=== PATIENT | male | born 1975 | race African-American/Black ===

== ENCOUNTER 2016-11-30 13:07 | Emergency (ER) | payer SELFPAY ==
--- NOTE | 2016-11-30 16:25 | ER Document Report ---
ED Skin Rash/Insect Bite/Abscs - General Chief Complaint: Cyst Stated Complaint: BUMP ON HEAD Time seen by provider: 16:22 Mode of Arrival: Ambulatory TRAVEL OUTSIDE OF THE [place] IN LAST 30 DAYS: No - HPI Patient complains to provider of: Tender/swollen area - Scalp Onset: Other - Had a small bump for the last week but the last couple days it has gotten much bigger Onset/Duration: Gradual, Worse Quality of pain: Other - sore Severity: Moderate Pain Level: 3 Skin Character: Abscess Quality of rash: Painful Identify cause: No Exacerbated by: Other - Touch Relieved by: Denies Similar symptoms previously: Yes Recently seen / treated by doctor: No - Related Data Allergies/Adverse Reactions: No Known Allergies Allergy (Verified 01/07/16 06:06) Past Medical History - General Information source: Patient - Social History Smoking Status: Current Every Day Smoker Cigarette use (# per day): Yes - half pack per day Chew tobacco use (# tins/day): No Frequency of alcohol use: Social Drug Abuse: None 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 denies: Arthritis, CAD, COPD, CVA, DM , Hyperlipidemia, Hypertension, Malignancy, Thyroid Disfunction Patient has suicidal ideation: No Patient has homicidal ideation: No - Past Medical History Cardiac Medical History: Reports: None Pulmonary Medical History: Reports: None EENT Medical History: Reports: None Neurological Medical History: Reports: None Endocrine Medical History: Reports: None Renal/ Medical History: Reports: Hx Kidney Stones Malignancy Medical History: Reports None GI Medical History: Reports: None Musculoskeltal Medical History: Reports None Skin Medical History: Reports None Psychiatric Medical History: Reports: None Traumatic Medical History: Reports: None Infectious Medical History: Reports: None Past Surgical History: Reports: Hx Appendectomy - Immunizations Hx Diphtheria, Pertussis, Tetanus Vaccination: Yes Review of Systems - Review of Systems Constitutional: No symptoms reported EENT: No symptoms reported Cardiovascular: No symptoms reported Respiratory: No symptoms reported Gastrointestinal: No symptoms reported Genitourinary: No symptoms reported Male Genitourinary: No symptoms reported Musculoskeletal: No symptoms reported Skin: Lesions - Top scalp Hematologic/Lymphatic: No symptoms reported Neurological/Psychological: No symptoms reported -: Yes All other systems reviewed and negative Physical Exam - Vital signs Vitals: Temp Pulse Resp BP Pulse Ox 98.1 F 60 16 122/69 100 01/02/17 13:14 11/30/16 13:14 11/30/16 13:14 11/30/16 13:14 11/30/16 13:14 Interpretation: Normal - General General appearance: Appears well, Alert - HEENT Head: Normocephalic, Atraumatic Eyes: Normal Pupils: PERRL - Respiratory Respiratory status: No respiratory distress Chest status: Nontender Breath sounds: Normal Chest palpation: Normal - Cardiovascular Rhythm: Regular Heart sounds: Normal auscultation Murmur: No - Abdominal Inspection: Normal Distension: No distension Bowel sounds: Normal Tenderness: Nontender Organomegaly: No organomegaly - Back Back: Normal, Nontender - Extremities General upper extremity: Normal inspection, Nontender, Normal color, Normal ROM , Normal temperature General lower extremity: Normal inspection, Nontender, Normal color, Normal ROM , Normal temperature, Normal weight bearing. No: Ger's sign - Neurological Neuro grossly intact: Yes Cognition: Normal Orientation: AAOx4 Brenda Coma Scale Eye Opening: Spontaneous Wadley Coma Scale Verbal: Oriented Wadley Coma Scale Motor: Obeys Commands Brenda Coma Scale Total: 15 Speech: Normal Motor strength normal: LUE, RUE, LLE, RLE Sensory: Normal - Psychological Associated symptoms: Normal affect, Normal mood - Skin Skin Temperature: Warm Skin Moisture: Dry Skin Color: Normal Skin irregularity: Abscess Location of irregularity: Scalp Irregularity with: Swelling, Tenderness, Warmth Course - Vital Signs Vital signs: Temp Pulse Resp BP Pulse Ox 97.4 F 70 20 132/78 H 98 11/30/16 17:38 11/30/16 17:38 11/30/16 17:38 11/30/16 17:38 11/30/16 17:38 Procedures - Incision and Drainage Posterior Head Time completed: 17:28 Type: Simple Anesthetic type: 1% Lidocaine Blade size: 11 I&D procedure: Other - Surgical scrub Incision Method: Incision made by scalpel Discharge - Discharge Clinical Impression: Abscess of scalp Condition: Stable Disposition: HOME, SELF-CARE Instructions: Family Physicians / Practices Additional Instructions: ABSCESS: You have an abscess (boil). This a pus-forming infection, usually due to staph. Some boils may be left to drain on their own, but most require lancing. From the time the tender lump first appears, it may be three or four days before the abscess is ready to obdulia. Local heat and rest help at this stage of treatment. An antibiotic may prevent spread of the infection. Once the abscess is opened, packing may be placed into it. This is done so pus is not sealed inside by premature closure of the cavity. The packing will be removed at your follow-up visit or you may be advised to remove it yourself at home. Sometimes this packing must be replaced a few times during healing. The wound will heal with surprisingly little scar. Depending on the size and location of an abscess, healing can take one to four weeks. You may shower and wash the area around the incision site two or three times a day. Antibiotics may be prescribed, but are usually not necessary after an abscess has been drained. If you develop fever, chills, worsening pain, or increasing swelling in the area, call the doctor or return immediately. POST INCISION AND DRAINAGE: You have had an incision made to allow drainage of an abscess. The incision must remain open so that pus and debris can drain from the wound. If the abscess cavity is large, packing is placed. This keeps the tissues from collapsing and trapping pus inside, while the body shrinks the cavity. The packing may need to be replaced every day or two. The physician will instruct you on the packing. Keep a bulky dressing over the area. Replace it if it becomes saturated with blood or pus. Do not disturb the packing (if present). You may shower and cleanse the area with gentle soap and warm water two or three times a day. Local warmth may be soothing, and may promote faster healing. Return if you develop high fever or chills, or if you note spreading redness, increasing swelling, or increasing tenderness. MRSA CELLULITIS: You have an infection of your skin and underlying soft tissues called cellulitis. This is due to bacteria, which can enter through any break in the skin, or even through an irritated hair follicle. Untreated, cellulitis will usually worsen and may form an abscess which requires draining. Although many bacterial organisms can cause cellulitis and abscess formations, the most likely bacteria is Methicillin-Resistant Staph Aureus, or MRSA for short. Antibiotics are required. Usually, warm packs or warm soaks, and elevation of the infected area are recommended. You should start getting better within 24 to 36 hours. Most infections respond quickly to the right medication. Follow-up care is important, however, to check for abscess (boil) formation, unsuspected foreign body, or resistant infection. If you develop fever, chills, or if the area of infection is becoming rapidly more swollen or painful, call the doctor at once. CEPHALEXIN: The antibiotic you've been prescribed is a member of the cephalosporin class. This type of antibiotic covers a wide variety of infections, including those of the skin, lungs, and urinary tract. It's useful for staph infections. This antibiotic is slightly similar to the penicillin family. In rare cases , a person who is allergic to penicillin will also be allergic to this medication. If you have had a severe allergic reaction to penicillin, and have not taken this antibiotic since that time, notify your doctor. Antibiotics which cover many germs ("broad spectrum" antibiotics) are more likely to cause diarrhea or "yeast" infections. Women prone to vaginal yeast problems may suffer an attack after taking this antibiotic. In infants, oral thrush (white spots "stuck" on the cheek) or yeast diaper rash may result. See your doctor if these problems occur. Call at once if you develop itching, hives , shortness of breath, or lightheadedness. TRIMETHOPRIM-SULFA: You have been given a prescription for trimethoprim-sulfa (TMS, Septra, Bactrim). This is a combination antibiotic of the sulfa class, often used for urinary tract infections, middle ear infections, bronchitis, shigella intestinal infection, and Pneumocystis pneumonia. TMS is usually well-tolerated. Occasional side effects include nausea and decreased appetite. Septra is not recommended for infants less than two months of age. Do not take this medication if you have experienced severe side effects or allergy to sulfa medicine. You should stop this medicine at once and contact your physician if you develop any rash, joint pain, shortness of breath, bruising, or jaundice ( yellow color in the skin), or if you develop any other new or unusual symptoms. FOLLOW-UP CARE: Most simple abscesses will not require a follow up visit. If you had packing placed in the abscess, remove it as instructed by the physician. If you have been referred to a physician for follow-up care, call the physicians office for an appointment as you were instructed or within the next two days. If you experience worsening or a significant change in your symptoms, return to the Emergency Department at any time for re-evaluation. Prescriptions: Hydrocodone/Acetaminophen [[place]ependence 5-325 mg Tablet] 1 tab PO Q6HP PRN #10 tablet PRN Reason: Cephalexin Monohydrate [Keflex 500 mg Capsule] 500 mg PO QID #20 capsule Sulfamethoxazole/Trimethoprim [Septra-Ds 800-160 mg Tablet] 1 tab PO BID #14 tablet Forms: Smoking Cessation Education, Return to Work
[2016-11-30 17:39] VITALS: BP 132/78
== END 2016-11-30 17:38 | disposition home or self-care (01) ==
LOC: ER 13:07
PROC: 0H90XZZ Drainage of Scalp Skin, External Approach (ICD-10-PCS; principal; 2016-11-30)
DX: L02.811 Cutaneous abscess of head [any part, except face] (principal); F17.210 Nicotine dependence, cigarettes, uncomplicated
CPT/HCPCS: 87070; 87075; 87205; 99282

== ENCOUNTER 2017-04-19 18:52 | Emergency (ER) | payer SELFPAY ==
[2017-04-19 19:40] VITALS: BP 120/54
[2017-04-19] MEDS ORDERED: DIPHENHYDRAMINE HCL 50 MG CAPSULE PO ONE (20:16)
[2017-04-19] MEDS ORDERED: TRAMADOL HCL 50 MG TABLET PO ONE (20:16)
--- NOTE | 2017-04-19 20:28 | ER Document Report ---
ED General - General Chief Complaint: Facial Swelling Stated Complaint: SWOLLEN RIGHT SIDE OF FACE Time Seen by Provider: 04/19/17 20:08 Mode of Arrival: Ambulatory Information source: Patient Notes: Patient is a 42 year old male who presents with right sided facial swelling that started earlier today when he woke up. Endorses associated pain to the area but denies any redness, warmth, headache, change in vision, dizziness, fever, chills, difficulty chewing, difficulty swallowing or dental pain. He has not taken anything for the pain. He does not take any medications on a regular basis, including an [place] inhibitor for HTN. TRAVEL OUTSIDE OF THE [place] IN LAST 30 DAYS: No - Related Data Allergies/Adverse Reactions: No Known Allergies Allergy (Verified 01/07/16 06:06) Past Medical History - General Information source: Patient - Social History Smoking Status: Unknown if Ever Smoked Family History: Reviewed & Not Pertinent. denies: Arthritis, CAD, COPD, CVA, DM , Hyperlipidemia, Hypertension, Malignancy, Thyroid Disfunction Patient has suicidal ideation: No Patient has homicidal ideation: No Renal/ Medical History: Reports: Hx Kidney Stones. Denies: Hx Peritoneal Dialysis Past Surgical History: Reports: Hx Appendectomy - Immunizations Hx Diphtheria, Pertussis, Tetanus Vaccination: Yes Review of Systems - Review of Systems Constitutional: See HPI EENT: See HPI Cardiovascular: No symptoms reported Respiratory: No symptoms reported Gastrointestinal: No symptoms reported Genitourinary: No symptoms reported Male Genitourinary: No symptoms reported Musculoskeletal: No symptoms reported Skin: No symptoms reported Hematologic/Lymphatic: No symptoms reported Neurological/Psychological: No symptoms reported Physical Exam - Vital signs Vitals: Temp Pulse Resp BP Pulse Ox 98.2 F 67 16 120/54 L 98 04/19/17 19:37 04/19/17 19:37 04/19/17 19:37 04/19/17 19:37 04/19/17 19:37 Interpretation: Normal - Notes Notes: PHYSICAL EXAM: CONSTITUTIONAL: Alert and oriented, well-appearing and in no acute distress. HENT: Normocephalic, atraumatic. Nares clear without erythema, septal hematoma or deviation, airway patent. Edema without erythema and tenderness to palpation of right cheek that does not extend to temporal area or inferiorly to mandible, submandibular space. Left side of face normal with no edema. Oropharynx clear without erythema, tonsilar exudate or malocclusion. No oropharynx or angioedema. No dental pain. Small area 0.5 cm of erythema that appears to be from traumatic bite to buccal mucosa with tenderness to palpation. No palpable area of fluctuance consistent with abscess. Trachea midline. Uvula midline. Moist mucous membranes. EYES: Pupils equal round and reactive to light, EOM intact. Sclera anicteric, conjunctiva are normal. No entrapment. NECK: supple without lymphadenopathy. No midline tenderness or paraspinous muscle spasms. No step-offs or deformities. ROM intact. HEART: Regular rate and rhythm without murmurs. LUNGS: CTAB and equal. No wheezes, rales or rhonchi. EXTREMITIES: Normal range of motion, no pitting edema. No cyanosis. Cap Refill < 3 seconds. NEURO: Cranial nerves grossly intact. Normal sensory/motor exams. PSYCH: Normal mood, normal affect. SKIN: Warm and dry. Normal turgor. No rashes or lesions noted. Course - Re-evaluation Re-evalutation: 04/19/17 20:31 Patient seen and examined. Edema without erythema and tenderness to palpation of right cheek that does not extend to temporal area or inferiorly to mandible, submandibular space. Left side of face normal with no edema. Oropharynx clear without erythema, tonsilar exudate or malocclusion. No oropharynx or angioedema. No dental pain. Small area 0.5 cm of erythema that appears to be from traumatic bite to buccal mucosa with associated tenderness to palpation. No palpable area of fluctuance consistent with abscess. No respiratory distress. At this time, low suspicion for Wood's angina, dental abscess or facial abscess. Will give PO benadryl and pain medication and continue to monitor. 04/19/17 21:35 Re-evaluated patient - some improvement of swelling and patient endorses pain improvement. Low suspicion remains for Wood's angina or abscess or angioedema. Patient remains with no respiratory distress. Discussed strict return precautions with patient and family at bedside who gave verbal agreement. Will treat with empiric abx and pain medication. Advised to follow- up with primary care doctor. At this time, will discharge with return precautions and follow-up recommendations. Verbal discharge instructions given at the bedside and opportunity for questions given. Medication warnings reviewed. Patient is in agreement with this plan and has verbalized understanding of return precautions and the need for primary care follow-up in the next 24-72 hours. - Vital Signs Vital signs: Temp Pulse Resp BP Pulse Ox 98.2 F 67 16 120/54 L 98 04/19/17 19:37 04/19/17 19:37 04/19/17 19:37 04/19/17 19:37 04/19/17 19:37 Discharge - Discharge Clinical Impression: Facial swelling Cellulitis Qualifiers: Site of cellulitis: face Qualified Code(s): L03.211 - Cellulitis of face Condition: Stable Disposition: HOME, SELF-CARE Additional Instructions: PLEASE RETURN IMMEDIATELY IF YOU NOTICE WORSENING OF THE SWELLING/PAIN, DIFFICULTY SWALLOWING, DIFFICULTY BREATHING, FEVER, CHILLS, BODY ACHES. CELLULITIS: You have an infection of your skin and underlying soft tissues called cellulitis. This is due to bacteria, which can enter through any break in the skin, or even through an irritated hair follicle. Untreated, cellulitis will usually worsen. Antibiotics are required. Usually, warm packs or warm soaks, and elevation of the infected area are recommended. You should start getting better within 24 to 36 hours. Most infections respond quickly to the right medication. Follow-up care is important, however, to check for abscess (boil) formation, unsuspected foreign body, or resistant infection. If you develop fever, chills, or if the area of infection is becoming rapidly more swollen or painful, call the doctor at once. ANTIBIOTIC THERAPY: You have been given an antibiotic prescription. It's important that you take all the medication, unless instructed otherwise by your physician. Failure to complete the entire course can result in relapse of your condition. Common side effects of antibiotics include nausea, intestinal cramping, or diarrhea. Women may develop vaginal yeast infections, and babies can get yeast (thrush) in the mouth following the use of antibiotics. Contact your physician if you develop significant side effects from this medication. Allergy to this antibiotic can result in hives, wheezing, faintness, or itching. If symptoms of allergy occur, stop the medication and call the doctor. TRIMETHOPRIM-SULFA: You have been given a prescription for trimethoprim-sulfa (TMS, Septra, Bactrim). This is a combination antibiotic of the sulfa class, often used for urinary tract infections, middle ear infections, bronchitis, shigella intestinal infection, and Pneumocystis pneumonia. TMS is usually well-tolerated. Occasional side effects include nausea and decreased appetite. Septra is not recommended for infants less than two months of age. Do not take this medication if you have experienced severe side effects or allergy to sulfa medicine. You should stop this medicine at once and contact your physician if you develop any rash, joint pain, shortness of breath, bruising, or jaundice ( yellow color in the skin), or if you develop any other new or unusual symptoms. ORAL NARCOTIC MEDICATION: You have been given a prescription for pain control. This medication is a narcotic. It's best taken with food, as nausea can result if taken on an empty stomach. Don't operate machinery or drive within six hours of taking this medication. Do not combine this medicine with alcohol, or with any medication which can cause sedation (such as cold tablets or sleeping pills) unless you get permission from the physician. Narcotics tend to cause constipation. If possible, drink plenty of fluids and eat a diet high in fiber and fruits. Please be aware that prescription narcotics also have the potential for abuse. People become addicted to these medications because of the general sense of wellbeing that they induce. This feeling along with a significant reduction in tension, anxiety, and aggression provides a stimulating seductive quality to these drugs. Once your pain is under control, we encourage you to discard your unused narcotics. FOLLOW-UP CARE: If you have been referred to a physician for follow-up care, call the physician s office for an appointment as you were instructed or within the next two days. If you experience worsening or a significant change in your symptoms, notify the physician immediately or return to the Emergency Department at any time for re-evaluation. Prescriptions: Tramadol HCl [Ultram] 50 mg PO Q8HP PRN #10 tablet PRN Reason: Amox Tr/Potassium Clavulanate [Augmentin 875-125 Tablet] 1 tab PO BID 10 Days
[2017-04-19] MEDS ORDERED: AMOXICILLIN TR/POT CLAVULANATE 500-125 MG TAB PO ONE (21:34)
== END 2017-04-19 21:54 | disposition home or self-care (01) ==
LOC: ER 18:52
DX: L03.211 Cellulitis of face (principal)
CPT/HCPCS: 99283

== ENCOUNTER 2017-12-01 13:18 | Emergency (ER) | payer SELFPAY ==
--- NOTE | 2017-12-01 14:40 | ER Document Report ---
ED General - General Chief Complaint: Redness of Eye Stated Complaint: LEFT EYE REDNESS, PAIN Time Seen by Provider: 12/01/17 14:03 Mode of Arrival: Ambulatory Information source: Patient, Parent TRAVEL OUTSIDE OF THE [place] IN LAST 30 DAYS: No - HPI Notes: 42-year-old male presents today with complaints of left eye redness 3 days. Denies any trauma. Denies any blurred vision, double vision, loss of vision. Denies any headaches, myalgias. Noticed redness has become progressively worse. Denies any exudates. Denies any exudates in the morning. Does not wear glasses or contacts. noticed increased redness. Denies any recent URI, coughing or vomiting. Denies any history of autoimmune disorders. Denies any photophobia or phonophobia. Denies rashes. Denies any chest pain, shortness of breath, nausea, vomiting - Related Data Allergies/Adverse Reactions: No Known Allergies Allergy (Verified 12/01/17 13:20) Past Medical History - General Information source: Patient - Social History Smoking Status: Current Every Day Smoker Chew tobacco use (# tins/day): No Frequency of alcohol use: Social Drug Abuse: Marijuana Family History: Reviewed & Not Pertinent. denies: Arthritis, CAD, COPD, CVA, DM , Hyperlipidemia, Hypertension, Malignancy, Thyroid Disfunction Patient has suicidal ideation: No Patient has homicidal ideation: No Renal/ Medical History: Reports: Hx Kidney Stones. Denies: Hx Peritoneal Dialysis Past Surgical History: Reports: Hx Appendectomy - Immunizations Hx Diphtheria, Pertussis, Tetanus Vaccination: Yes Review of Systems - Review of Systems Constitutional: No symptoms reported EENT: See HPI Cardiovascular: No symptoms reported Respiratory: No symptoms reported Gastrointestinal: No symptoms reported Genitourinary: No symptoms reported Male Genitourinary: No symptoms reported Musculoskeletal: No symptoms reported Skin: No symptoms reported Hematologic/Lymphatic: No symptoms reported Neurological/Psychological: No symptoms reported Physical Exam - Vital signs Vitals: Temp Pulse Resp BP Pulse Ox 98.0 F 54 L 18 133/69 H 100 12/01/17 13:33 12/01/17 13:33 12/01/17 13:33 12/01/17 13:33 12/01/17 13:33 - Notes Notes: PHYSICAL EXAMINATION: GENERAL: Well-appearing, well-nourished and in no acute distress. HEAD: Atraumatic, normocephalic. EYES: Pupils equal round and reactive to light, extraocular movements intact, sclera anicteric, conjunctiva are normal. ENT: Nares patent, oropharynx clear without exudates. Moist mucous membranes. NECK: Normal range of motion, supple without lymphadenopathy LUNGS: Breath sounds clear to auscultation bilaterally and equal. No wheezes rales or rhonchi. HEART: Regular rate and rhythm without murmurs ABDOMEN: Soft, nontender, nondistended abdomen. No guarding, no rebound. No masses appreciated. Musculoskeletal: Normal range of motion, no pitting or edema. No cyanosis. NEUROLOGICAL: Cranial nerves grossly intact. Normal speech, normal gait. Normal sensory, motor exams PSYCH: Normal mood, normal affect. SKIN: Warm, Dry, normal turgor, no rashes or lesions noted. - HEENT Visual acuity- Right eye: 20/20 Visual acuity- Left eye: 20/20 Visual acuity- Both eyes: 20/20 Corrective lenses worn: No - Respiratory Respiratory status: No respiratory distress Chest status: Nontender Breath sounds: Normal Chest palpation: Normal - Cardiovascular Rhythm: Regular Pulses: Normal: Radial Normal capillary refill: Yes - Abdominal Inspection: Normal Distension: No distension Bowel sounds: Normal Tenderness: Nontender Organomegaly: No organomegaly - Neurological Neuro grossly intact: Yes Orientation: AAOx4 Speech: Normal Cranial nerves: Normal - Psychological Associated symptoms: Normal affect, Normal mood - Skin Skin Temperature: Warm Skin Color: Normal Course - Re-evaluation Re-evalutation: consulted with Dr. Nate Russo at 1440 for concern of iritis or uveitis. Discussed with him that he is visual acuity is normal of 20/20 bilaterally. Denies any pain, exudates, photophobia or phonophobia. Denies any chronic issues or autoimmune disorders. Noted that iris was slightly larger than the right on examination, pupils did Bo. Concerned of erythemic sclera. Discussed differential left subconjunctival hemorrhage, conjunctivitis, episcleritis, iritis, uveitis, myosis, acute glaucoma 12/01/17 15:20: Check bilateral eyes with the [place] bilaterally. Pressures were both in 19 in each eye, which was done twice. Pressures each remaining 19 in both left and right eye. Dr. Nate Russo at 1550 of results. States he will see him in the office tomorrow and discuss that if any concerns he should return to the emergency room. Discussed findings of stencil cutter and myself with patient with patient, she verbalized understanding to go to the office tomorrow, address and phone number given. Dr. Nate Russo took his name, date of and will also be following up with him as well to ensure that he seen. Patient verbalized as well as verbalize an understanding, felt comfortable with the plan of care and agrees with plan of care to return if any symptoms become worse. Patient was discharged home. - Vital Signs Vital signs: Temp Pulse Resp BP Pulse Ox 98.0 F 54 L 18 133/69 H 100 12/01/17 13:33 12/01/17 13:33 12/01/17 13:33 12/01/17 13:33 12/01/17 13:33 Discharge - Discharge Clinical Impression: Viral conjunctivitis of left eye Condition: Good Disposition: HOME, SELF-CARE Additional Instructions: Eye Injury You have been evaluated for an eye injury or problem. At this time no serious, vision-threatening problem could be found. If an infection is suspected or to prevent an infection, antibiotics drops may be prescribed. Pain medication may be required. Don't drive or operate machinery until you have the use of both your eyes. Call the doctor or return at once if you develop severe pain, decreasing vision, eye swelling, or pus drainage. Follow-up with Dr. Yobani Russo , stencil cutter on-call, tomorrow. He is already aware of your eye issues. Is expecting to see you in the office tomorrow afternoon. If symptoms become worse with eye pain, swelling, blurred vision, double vision, loss of vision, fever return to the ER immediately. Use eye ointment as directed, take over-the -counter ibuprofen if needed. Patient verbalized understanding of this plan of care and agree with plan of care. . Prescriptions: Mineral Oil/Petrolatum,White [Systane Nighttime Eye Oint] 3.5 gm OP DAILY #1 oint...g. Referrals: NATE RUSSO DO [ACTIVE STAFF] - Follow up tomorrow (call office for appt, is expecting your call to see you in the office. )
[2017-12-01 16:01] VITALS: BP 117/71
== END 2017-12-01 16:00 | disposition home or self-care (01) ==
LOC: ER 13:18
DX: B30.9 Viral conjunctivitis, unspecified (principal); H57.12 Ocular pain, left eye; F17.200 Nicotine dependence, unspecified, uncomplicated
CPT/HCPCS: 99282

== ENCOUNTER 2019-03-06 04:52 | Emergency (ER) | payer SELFPAY ==
[2019-03-06] MEDS ORDERED: PENICILLIN G BENZATHINE 1.2 MILLION UNIT/2 ML DISP.SYRIN IM ONE (05:24)
[2019-03-06] MEDS ORDERED: DEXAMETHASONE SOD PHOS INJ 10 MG/1 ML VIAL IM ONE (05:24)
[2019-03-06] MEDS ORDERED: NAPROXEN 250 MG TABLET PO ONE (05:25)
--- NOTE | 2019-03-06 05:29 | ER Document Report ---
ED General - General Chief Complaint: Sore Throat Stated Complaint: SORE THROAT Time Seen by Provider: 03/06/19 05:24 TRAVEL OUTSIDE OF THE [place] IN LAST 30 DAYS: No - HPI Notes: Patient is a 43-year-old male that presents to the emergency department for chief complaint of sore throat. Patient reports 3 days of sore throat. His pain is bilateral and symmetric. He states it feels like some swelling and fullness in the back of his throat. He denies any difficulty swallowing or breathing. He reports sweats and chills but has not taken his temperature at home. He has not taken any antipyretics or p ain medication. He states it does hurt to swallow or move his tongue. He states he has been able to eat and drink normally. Past Medical History: Negative Past Surgical History: Appendectomy Social History: Occasional marijuana, daily tobacco, denies alcohol use Family History: Reviewed and noncontributory for presenting illness Allergies: Reviewed, see documented allergy list. REVIEW OF SYSTEMS: CONSTITUTIONAL : No fever chills diaphoresis No recent illness EENT: No vision changes No congestion sore throat CARDIOVASCULAR: No chest pain No palpitations RESPIRATORY: No shortness of breath No cough No difficulty breathing GASTROINTESTINAL: No abdominal pain No nausea No vomiting No diarrhea GENITOURINARY: No dysuria No hematuria No difficulty urinating MUSCULOSKELETAL: No back pain No leg pain No arm pain SKIN: No rashes No lesions LYMPHATIC: No swollen, enlarged glands. NEUROLOGICAL: No lightheadedness No headache No weakness No paresthesias PSYCHIATRIC: No anxiety No depression PHYSICAL EXAMINATION: Vital signs reviewed, nursing noted reviewed. GENERAL: Well-appearing, well-nourished and in no acute distress. HEAD: Atraumatic, normocephalic. EYES: Eyes appear normal, extraocular movements intact, sclera anicteric, conjunctiva are normal. ENT: nares patent, oropharyngeal erythema with tonsillar edema and bilateral exudates, tonsils symmetric, uvula midline. Moist mucous membranes. NECK: Normal range of motion, supple with bilateral anterior chain lymphadenopathy LUNGS: Breath sounds clear to auscultation bilaterally and equal. No wheezes rales or rhonchi. HEART: Regular rate and rhythm without murmurs ABDOMEN: Soft, nontender, normoactive bowel sounds. No rebound, guarding, or rigidity. No masses appreciated. EXTREMITIES: Nontender, good range of motion, no pitting or edema. NEUROLOGICAL: No focal neurological deficits. Moves all extremities spontaneously Motor and sensory grossly intact on exam. PSYCH: Normal mood, normal affect. SKIN: Warm, Dry, normal turgor, no rashes or lesions noted on exposed skin - Related Data Allergies/Adverse Reactions: No Known Allergies Allergy (Verified 12/01/17 13:20) Past Medical History - Social History Smoking Status: Current Every Day Smoker Family History: Reviewed & Not Pertinent. denies: Arthritis, CAD, COPD, CVA, DM, Hyperlipidemia, Hypertension, Malignancy, Thyroid Disfunction Renal/ Medical History: Reports: Hx Kidney Stones. Denies: Hx Peritoneal Dialysis Past Surgical History: Reports: Hx Appendectomy - Immunizations Hx Diphtheria, Pertussis, Tetanus Vaccination: Yes Physical Exam - Vital signs Vitals: Temp Pulse Resp BP Pulse Ox 97.7 F 77 16 125/77 97 03/06/19 04:54 03/06/19 04:54 03/06/19 04:54 03/06/19 04:54 03/06/19 04:54 Course - Re-evaluation Re-evalutation: 03/06/19 05:28 Vitals reviewed. Nursing notes reviewed. Patient has lymphadenopathy and tonsillar exudates as well as lack of cough. He has 3/4 Centor criteria and w ill be treated for strep pharyngitis with Bicillin IM. Patient given Decadron and naproxen for symptom medic management. His tonsillar edema is symmetric bilaterally and I do not clinically appreciate any peritonsillar abscess currently. Patient will follow with PCP in the next few days for reevaluation. - Vital Signs Vital signs: Temp Pulse Resp BP Pulse Ox 97.7 F 77 16 125/77 97 03/06/19 04:54 03/06/19 04:54 03/06/19 04:54 03/06/19 04:54 03/06/19 04:54 Discharge - Discharge Clinical Impression: Strep pharyngitis Condition: Stable Disposition: HOME, SELF-CARE Instructions: Strep Throat ([facility]) Additional Instructions: Please return to the emergency department if you have any worsening, or concern of your symptoms. Please return to the emergency department if you develop chest pain, difficulty breathing, severe abdominal pain, or ongoing vomiting. Please follow-up with your primary care physician in 2-3 days and any other recommended physicians. If prescribed, take all medications as directed. If you have any questions or concerns do not hesitate to return the emergency department for evaluation. Take Tylenol or ibuprofen at home as needed for fever and pain Referrals: [facility] [Provider Group] - Follow up in 3-5 days
[2019-03-06 06:43] VITALS: BP 130/82
== END 2019-03-06 06:43 | disposition home or self-care (01) ==
LOC: ER 04:52
DX: J02.0 Streptococcal pharyngitis (principal); R61 Generalized hyperhidrosis; R68.83 Chills (without fever); F17.200 Nicotine dependence, unspecified, uncomplicated
CPT/HCPCS: 99282; 96372; J0561; J1100

== ENCOUNTER 2019-12-09 09:07 | Emergency (ER) | payer SELFPAY ==
[2019-12-09 09:12] VITALS: BP 115/73
== END 2019-12-09 09:49 | disposition left against medical advice (07) ==
LOC: ER 09:07
DX: Z53.21 Procedure and treatment not carried out due to patient leaving prior to being seen by health care provider (principal); M79.672 Pain in left foot; M79.89 Other specified soft tissue disorders